=== PATIENT | female | born 1985 ===

== ENCOUNTER 2017-05-04 17:18 | Emergency (ER) | payer BC ==
[2017-05-04 17:18] VITALS: BMI 23.0
[2017-05-04 17:37] VITALS: BP 100/51; PULSE 70; RESP 17; TEMP 98; O2SAT 99
[2017-05-04] MEDS ORDERED: Lidocaine 1% Inj (20ml) ONE (19:06)
--- NOTE | 2017-05-04 19:40 | ED PDOC ---
HPI: Skin/Bite Injury Time Seen by Provider: 05/04/17 19:27 Chief Complaint (Nursing): Abnormal Skin Integrity Chief Complaint (Provider): laceration History Per: Patient History/Exam Limitations: no limitations Additional Complaint(s): right hand laceration sustained today while shopping via a vase-denies numbness/ tingling no weakness. tetatnus is uptodate. no active bleeding. Past Medical History Reviewed: Historical Data, Nursing Documentation, Vital Signs Vital Signs: Last Vital Signs Temp 98.0 F 05/04/17 17:34 Pulse 70 05/04/17 17:34 Resp 17 05/04/17 17:34 BP 100/51 L 05/04/17 17:34 Pulse Ox 99 05/04/17 17:34 - Medical History PMH: No Chronic Diseases Denies: Chronic Kidney Disease - Family History Family History: States: No Known Family Hx - Home Medications Home Medications: Ambulatory Orders Medication Instructions Recorded Multivit/Folic Acid/I 1 tab PO DAILY 05/06/16 [ Plus] Ferrous Sulfate 325 mg PO TID #100 tablet 05/10/16 Cholecalciferol (Vitamin D3) 2,000 unit PO DAILY 09/06/16 [Vitamin D3] Ibuprofen [Motrin] 600 mg PO Q6H PRN #30 tab 09/06/16 - Allergies Allergies/Adverse Reactions: Allergies Allergy/AdvReac Type Severity Reaction Status Date / Time No Known Allergies Allergy Unverified 10/19/13 08:54 Review of Systems ROS Statement: Except As Marked, All Systems Reviewed And Found Negative Musculoskeletal: Positive for: Hand Pain Skin: Positive for: Rash Physical Exam - Reviewed Nursing Documentation Reviewed: Yes Vital Signs Reviewed: Yes - Physical Exam Appears: Positive for: Well, Non-toxic, No Acute Distress Head Exam: Positive for: ATRAUMATIC, NORMAL INSPECTION, NORMOCEPHALIC Skin: Positive for: Normal Color, Warm, Rash (laceration noted to right thenar apsect -avulsion of skin noted sized 3cm no active bleeding. ) Cardiovascular/Chest: Positive for: Regular Rate, Rhythm Respiratory: Positive for: CNT, Normal Breath Sounds Neurologic/Psych: Positive for: Alert, Oriented - ECG O2 Sat by Pulse Oximetry: 99 Medical Decision Making Medical Decision Making: wound cleaned and irrigated with NS, dermabond applied and wound care provided. no indication for further ER f/u Disposition - Clinical Impression Clinical Impression: Avulsion of skin - Patient ED Disposition Is Patient to be Admitted: No Counseled Patient/Family Regarding: Diagnosis, Need For Followup - Disposition Disposition: Routine/Home Disposition Time: 19:43 Condition: STABLE Instructions: Skin Avulsion (ED), Skin Adhesive Care (ED)
== END 2017-05-04 19:55 | disposition home or self-care (01) ==
LOC: H.ER 17:18
DX: S61.411A Laceration without foreign body of right hand, initial encounter (principal); W26.8XXA Contact with other sharp object(s), not elsewhere classified, initial encounter; Y92.89 Other specified places as the place of occurrence of the external cause